=== PATIENT | female | born 1980 | race Caucasian/White ===

== ENCOUNTER → 2017-02-18 | Outpatient (CLI) | payer SELFPAY ==
--- NOTE | 2017-02-18 16:01 | US ---
History: Left upper quadrant pain. Limited left upper quadrant ultrasound: Directed left upper quadrant sonography is performed. The spleen is normal and measures approximately 12.1 cm in length. There is no significant ascites in the left upper quadrant. Left kidney is 11.6 cm in length. No hydronephrosis, solid or cystic mass. Additional linear transducer images of the region of clinical concern in the left upper quadrant demonstrate fatty tissue subcutaneously without focal sonographic abnormality. The underlying rib and chest wall musculature are unremarkable. IMPRESSION: Negative Limited left upper quadrant sonography. Electronically signed by: India Mccray MD 02/18/2017 4:01 PM CDT
--- NOTE | 2017-02-18 17:03 | MAM ---
History: Breast pain. DATE OF SERVICE: 02/18/2017 Services provided: Full field digital bilateral diagnostic mammography. FINDINGS: No significant family history for breast malignancy. This represents baseline study. Routine, true lateral and exaggerated lateral views of each breast are obtained. Scattered nodular parenchymal pattern. No dominant mass, architectural distortion or clustered microcalcification. IMPRESSION: Benign exam. No mammographic evidence for malignancy in either breast. Recommendation: Screening mammography according to the [employer] guidelines. Findings and recommendations were communicated to the patient. BIRAD CATEGORY: 2 BENIGN Electronically signed by: [place] Mccray MD 02/18/2017 5:03 PM CDT
== END ==
LOC: US 08:17
PROVIDERS: ATTEND Obstetrics & Gynecology
DX: N63 Unspecified lump in breast (principal); R10.12 Left upper quadrant pain
CPT/HCPCS: 76705; G0204